=== PATIENT | female | born 1995 | race Two or more races ===

== ENCOUNTER 2023-04-19 16:46 | Inpatient (IN) | payer MEDICAID, OTHER ==
[~2023-04-19] VITALS: Ht 152.4 cm; Wt 60.0 kg
[2023-04-19] MEDS ORDERED: LORazepam 2 MG/ML VIAL IM ONE (17:00)
[2023-04-19] MEDS ORDERED: DiphenhydrAMINE HCL 50 MG/ML VIAL IM ONE (17:00)
[2023-04-19] MEDS ORDERED: HALOPERIDOL LACTATE 5 MG/ML VIAL IM ONE (17:00)
[2023-04-19 17:11] LABS: COVID AG,FIA SOURCE NASAL SWAB
[2023-04-19 17:34] LABS: BASOPHILS % (AUTO) 0.3 % (0.0-2.0); EOSINOPHILS % (AUTO) 0.2 % (1.0-6.0); HEMATOCRIT 34.4 % (36-46); HEMOGLOBIN 11.5 g/dL (12.0-16.0); LYMPHOCYTES # (AUTO) 1.5 K/uL (1.0-4.8); LYMPHOCYTES % (AUTO) 6.6 % (22.0-44.0); MEAN CORPUSCULAR HEMOGLOBIN 30.8 pg (26.0-34.0); MEAN CORPUSCULAR HGB CONC 33.6 G/dL (31.0-37.0); MEAN CORPUSCULAR VOLUME 92 fL (80-100); MONOCYTES # (AUTO) 1.6 K/uL (0.1-1.0); PLATELET COUNT (AUTO) 327 K/uL (150-450); RED BLOOD CELL COUNT(AUTO) 3.75 MIL/uL (4.00-5.20); RED CELL DISTRIBUTION WIDTH 13.9 % (11.5-14.5); WHITE BLOOD COUNT (AUTO) 22.2 K/uL (4.5-11.0)
[2023-04-19 17:37] LABS: SARS-COV2 (COVID) ANTIGEN,FIA Negative (Negative)
[2023-04-19 17:39] LABS: NEUTROPHILS % (AUTO) 85.9 % (40.0-70.0)
[2023-04-19 17:53] LABS: ALANINE AMINOTRANSFERASE 23 U/L (12-78); ALBUMIN 3.8 g/dL (3.4-5.0); ALKALINE PHOSPHATASE 60 U/L (46-116); ANION GAP 15 mmol/L (8-16); ASPARTATE AMINOTRANSFERASE 20 U/L (15-37); BILIRUBIN,TOTAL 0.5 mg/dL (0.1-1.0); CALCIUM, TOTAL 9.2 mg/dL (8.8-10.5); CARBON DIOXIDE 21 mmol/L (22-29); CHLORIDE 107 mmol/L (98-107); GLOMERULAR FILTR. RATE CALC 53 mL/min (>60); GLUCOSE,RANDOM 129 mg/dL (70-110); SODIUM SERUM 143 mmol/L (136-145); TOTAL PROTEIN, SERUM 7.2 g/dL (6.4-8.2); UREA NITROGEN, BLOOD 21 mg/dL (7-18)
[2023-04-19 17:54] LABS: ALCOHOL, BLOOD (SERUM) < 3 mg/dL (0-10)
[2023-04-19 17:55] LABS: POTASSIUM 2.7 mmol/L (3.5-5.1)
[2023-04-19] MEDS ORDERED: POTASSIUM CHLORIDE 10% 40 MEQ/30 ML LIQUID UDCUP PO ONE ×2 (18:00→18:30)
[2023-04-19 22:04] LABS: APPEARANCE,URINE TURBID (CLEAR); BILIRUBIN,URINE NEGATIVE (NEGATIVE); COLOR,URINE YELLOW (YELLOW); GLUCOSE, URINE (UA) NEGATIVE (NEGATIVE); KETONES,URINE 40-60 mg/dL (NEGATIVE); LEUKOCYTE ESTERASE ,URINE NEGATIVE (NEGATIVE); NITRATE,URINE NEGATIVE (NEGATIVE); OCCULT BLOOD,URINE SMALL (NEGATIVE); PH,URINE 5.5 (5.0-8.0); PH,URINE DRUG SCREEN 5.5 (5.0-8.0); PROTEIN,URINE 100-200,SEE CONFIRM mg/dL (NEGATIVE); SPECIFIC GRAVITIY, URINE 1.026 (1.003-1.030); UROBILINOGEN,URINE <=1.0 mg/dL (<=1.0)
[2023-04-19 22:07] LABS: ANION GAP 12 mmol/L (8-16); CALCIUM, TOTAL 9.2 mg/dL (8.8-10.5); CARBON DIOXIDE 25 mmol/L (22-29); CHLORIDE 108 mmol/L (98-107); CREATININE 1.01 mg/dL (0.60-1.30); GLOMERULAR FILTR. RATE CALC > 60 mL/min (>60); GLUCOSE,RANDOM 87 mg/dL (70-110); SODIUM SERUM 145 mmol/L (136-145); UREA NITROGEN, BLOOD 22 mg/dL (7-18)
[2023-04-19 22:12] LABS: ALCOHOL, URINE DRUG SCREEN NEGATIVE (NEGATIVE); AMPHET/METH SCREEN,URINE NEGATIVE (NEGATIVE); BARBITURATE SCREEN, URINE NEGATIVE (NEGATIVE); BENZODIAZEPINES SCREEN,URINE NEGATIVE (NEGATIVE); CANNABINOID SCREEN,URINE POSITIVE (NEGATIVE); COCAINE SCREEN,URINE POSITIVE (NEGATIVE); METHADONE SCREEN, URINE NEGATIVE (NEGATIVE); OPIATE SCREEN,URINE NEGATIVE (NEGATIVE); PHENCYCLIDINE SCREEN,URINE NEGATIVE (NEGATIVE)
[2023-04-19 22:16] LABS: SQUAMOUS EPITHELIAL CELL,UR Few /LPF (None Seen); SULFOSALICYLIC ACID,URINE 2+ (Negative)
[2023-04-19 22:17] LABS: RBC,URINE 0-2 /HPF (0-2)
[2023-04-19 22:19] LABS: BACTERIA,URINE Few /HPF (None Seen)
[2023-04-19 22:31] LABS: GLUCOMETER DEV NAME(LOC) ERT.5; GLUCOSE,POINT OF CARE 60 MG/DL (70-110)
[2023-04-20 07:00] LABS: BASOPHILS % (AUTO) 0.5 % (0.0-2.0); EOSINOPHILS % (AUTO) 3.2 % (1.0-6.0); HEMATOCRIT 35.2 % (36-46); LYMPHOCYTES # (AUTO) 2.9 K/uL (1.0-4.8); LYMPHOCYTES % (AUTO) 33.9 % (22.0-44.0); MEAN CORPUSCULAR HEMOGLOBIN 31.8 pg (26.0-34.0); MEAN CORPUSCULAR HGB CONC 34.1 G/dL (31.0-37.0); MEAN CORPUSCULAR VOLUME 93 fL (80-100); MONOCYTES # (AUTO) 0.8 K/uL (0.1-1.0); MONOCYTES % (AUTO) 8.9 % (2.0-9.0); NEUTROPHILS # (AUTO) 4.6 K/uL (1.8-7.7); NEUTROPHILS % (AUTO) 53.5 % (40.0-70.0); PLATELET COUNT (AUTO) 334 K/uL (150-450); RED BLOOD CELL COUNT(AUTO) 3.78 MIL/uL (4.00-5.20); RED CELL DISTRIBUTION WIDTH 13.5 % (11.5-14.5); WHITE BLOOD COUNT (AUTO) 8.7 K/uL (4.5-11.0)
[2023-04-20] MEDS: LORazepam 2 MG TABLET PO PRN (11:45)
[2023-04-20] MEDS: HALOPERIDOL 5 MG TABLET PO PRN (11:45)
[2023-04-20] MEDS: ZOLPIDEM TARTRATE 10 MG TABLET PO PRN (19:34)
[2023-04-20 22:05] VITALS: BP 129/79; PULSE 95; RESP 18; TEMP 98.1; O2SAT 99
[2023-04-21 02:27] VITALS: RESP 18; TEMP 97.7
[2023-04-21 08:23] VITALS: BP 119/78; PULSE 100; RESP 17; TEMP 97.6; O2SAT 98
[2023-04-21] MEDS: LORazepam 2 MG TABLET PO PRN ×3 (09:41→18:58)
[2023-04-21] MEDS: HALOPERIDOL 5 MG TABLET PO PRN (13:50)
[2023-04-21] MEDS ORDERED: HydrOXYzine PAMOATE 25 MG CAPSULE PO PRN (16:30)
[2023-04-21] MEDS: OLANZapine 5 MG TABLET PO SCH (17:55)
[2023-04-21] MEDS ORDERED: MAG HYDROX/AL HYDROX/SIMETH ES 30 ML SUSPENSION UDCUP PO PRN (19:00)
[2023-04-21] MEDS ORDERED: ACETAMINOPHEN 325 MG TABLET PO PRN (19:00)
[2023-04-21] MEDS ORDERED: ALBUTEROL SULFATE HFA 90 MCG/PUFF 8 GM INHALER IH PRN (19:00)
[2023-04-21] MEDS ORDERED: PETROLATUM,WHITE 28 GM JELLY TP PRN (19:00)
[2023-04-21] MEDS ORDERED: LOPERAMIDE HCL 2 MG CAPSULE PO PRN (19:00)
[2023-04-21] MEDS ORDERED: NICOTINE 14 MG/24 HOUR PATCH TD PRN (19:00)
[2023-04-21] MEDS ORDERED: DOCUSATE SODIUM 100 MG CAPSULE PO PRN (19:00)
[2023-04-21] MEDS ORDERED: CloNIDine HCL 0.1 MG TABLET PO PRN (19:00)
[2023-04-21] MEDS ORDERED: ONDANSETRON HCL 4 MG TABLET PO PRN (19:00)
[2023-04-21] MEDS ORDERED: GuaiFENesin/D-METHORPHAN [SUGAR-FREE] 200-20MG/10 ML SYRUP UDCUP PO PRN (19:00)
[2023-04-21] MEDS ORDERED: IBUPROFEN 400 MG TABLET PO PRN (19:00)
[2023-04-21] MEDS ORDERED: MAGNESIUM HYDROXIDE SUSPENSION 30 ML UDCUP PO PRN (19:00)
[2023-04-21 20:30] VITALS: BP 113/60; PULSE 100; RESP 18; TEMP 98; O2SAT 96
[2023-04-21] MEDS: ZOLPIDEM TARTRATE 10 MG TABLET PO PRN (20:57)
[2023-04-21] MEDS ORDERED: MIRTAZAPINE 15 MG TABLET PO SCH (21:00)
[2023-04-21 21:03] VITALS: BP 113/60; PULSE 100; RESP 18; TEMP 98; O2SAT 96
[2023-04-22 08:19] LABS: CHOL/HDL RATIO 3.3 (3.9-5.7); THYROID STIMULATING HORMONE 0.39 uIU/mL (0.36-3.74)
[2023-04-22] MEDS: OLANZapine 5 MG TABLET PO SCH ×2 (08:29→16:06)
[2023-04-22 08:45] VITALS: BP 109/56; PULSE 69; RESP 18; TEMP 97.8; O2SAT 98
[2023-04-22] MEDS ORDERED: SERTRALINE HCL 50 MG TABLET PO SCH (09:00)
[2023-04-22] MEDS: LORazepam 2 MG TABLET PO PRN ×2 (10:37→15:31)
[2023-04-22] MEDS: HALOPERIDOL 5 MG TABLET PO PRN ×2 (10:37→15:31)
[2023-04-22] MEDS ORDERED: SERT-439 PO (14:46)
[2023-04-22] MEDS ORDERED: OLAN5TAB52 PO (14:46)
[2023-04-22] MEDS ORDERED: MIRT-89 PO (14:46)
== END 2023-04-22 16:40 | disposition home or self-care (01) | DRG 751 ==
LOC: EMS 16:47 → B2S 04-20 20:23
PROVIDERS: ADMIT Psychiatry & Neurology Child & Adolescent Psychiatry; ATTEND Psychiatry & Neurology Child & Adolescent Psychiatry
DX: F29 Unspecified psychosis not due to a substance or known physiological condition (principal); F20.0 Paranoid schizophrenia; I95.9 Hypotension, unspecified; D72.829 Elevated white blood cell count, unspecified; F41.9 Anxiety disorder, unspecified; Z20.822 Contact with and (suspected) exposure to COVID-19; F10.10 Alcohol abuse, uncomplicated; E16.2 Hypoglycemia, unspecified; E87.6 Hypokalemia; F19.10 Other psychoactive substance abuse, uncomplicated; Z88.8 Allergy status to other drugs, medicaments and biological substances
CPT/HCPCS: 80048; 80053; 80061; 80307; 81001; 81002; 82962; 83036; 84443; 84703; 85025; 99291; G0480; J1200; J1630; J2060